=== PATIENT | male | born 1940 | race Caucasian/White ===

== ENCOUNTER 2016-10-21 14:32 | Inpatient (IN) | payer OTHER ==
--- NOTE | ~2016-10-21 | CN ---
Consultation Report [facility] [address] [place]. [address] NAME: BRIAN KUHN : 40 STATUS : ADM IN PAT#: [id number] AGE: 75 ADM/REG DATE : 10/21/16 MR#: [id number] REPORT SERV DATE: 10/22/16 DICTATED BY: COLTON MAYORGA III DATE: 10/22/16 REPORT STATUS : Draft TRANSCRIBED BY: JEAN PAUL DATE: 10/22/16 CONSULTATION DATE OF CONSULTATION: 10/21/2016 REASON FOR CONSULTATION: New lung cancer. HISTORY OF PRESENT ILLNESS: Mr. Kuhn is a 75-year-old man, with a history of atrial fibrillation and coronary artery disease, with a pacer placement, who developed a cough roughly two months ago. This was thought secondary to his lisinopril and managed conservatively. More recently, he developed a shoulder discomfort in his right chest wall after performing some yard work. This progressively worsened and he sought medical workup with a chest x-ray, which revealed a right apical lung mass with suspected rib invasion. He has been mildly confused recently, but for the most part he remains very active. He has not noted any recent hemoptysis. He denies any weight loss, any night sweats, or fevers. He has noted some constipation. PAST MEDICAL HISTORY: 1. Coronary artery disease with myocardial infarction. 2. Hypertension. 3. Atrial fibrillation with pacer. 4. Mild chronic kidney disease. 5. Hypertension. FAMILY HISTORY: Significant for heart disease, diabetes, and hypertension. SOCIAL HISTORY: He is a former smoker, but stopped roughly in 1998. There is no alcohol abuse. HOME MEDICATION: His home medication list was reviewed and per the home med list. REVIEW OF SYSTEMS: A comprehensive review of systems was performed and is negative unless noted in the HPI. PHYSICAL EXAMINATION: VITAL SIGNS: Blood pressure is 142/64, temperature is 98.2, pulse is 75. GENERAL: This is well-developed, well-nourished man, in no acute distress. EYES: Pupils are round and reactive to light. Extraocular muscles are intact. There are anicteric sclerae. NECK: Supple with no masses or thyroid enlargement. No JVD. CARDIOVASCULAR: Irregularly irregular. Rate controlled. There is no peripheral edema. LUNGS: Clear to auscultation bilaterally with normal respiratory effort. ABDOMEN: Soft, nondistended, and nontender. No hepatosplenomegaly. SKIN: Warm and dry with good skin turgor. There is no jaundice. Consultation Report [place] [address] [place]. [address] NAME: BRIAN KUHN : 40 STATUS : ADM IN PAT#: [id number] AGE: 75 ADM/REG DATE : 10/21/16 MR#: [id number] REPORT SERV DATE: 10/22/16 DICTATED BY: COLTON MAYORGA III DATE: 10/22/16 REPORT STATUS : Draft TRANSCRIBED BY: MODL DATE: 10/22/16 PSYCH: He is alert, oriented, and comprehends our conversation with normal judgment and affect. LYMPHATIC: Exam is negative for any cervical, supraclavicular, or axillary lymphadenopathy. LABORATORY AND DIAGNOSTIC DATA: His chest x-ray was reviewed and did show a right apical mass. His admission labs were reviewed. His calcium level was quite elevated at 14.7. ASSESSMENT/PLAN: 1. Right apical mass. We will consult Pulmonary for evaluation. He has imaging planned for today. I did explain to him our suspected diagnosis of lung cancer. I am unable to give him any more specifics at this time until more information is gathered. 2. Hypercalcemia, suspect secondary to malignancy. We will dose pamidronate at 90 mg x1. BMA/MODL Colton Mayorga III, M.D. / [id number] CC: Jameson Humphries MD DAILY,TATIANA
--- NOTE | ~2016-10-21 | EGD ---
EGD REPORT [facility] [address] [phone] NAME: PHILLIP KUHN : 40 STATUS : ADM IN PAT#: [id number] AGE: 75 ADM/REG DATE : 10/21/16 MR#: [id number] REPORT SERV DATE: 10/23/16 DICTATED BY: GHISLAINE OJEDA DATE: 10/23/16 REPORT STATUS : Draft TRANSCRIBED BY: [facility] DATE: 10/23/16 Pulmonology Patient Name: Phillip Kuhn Procedure Date: 10/23/2016 1:39 PM Date of : 1940 Attending MD: MELANIE OJEDA MD Procedure Date No Time: 10/23/2016 Procedure: EBUS/HIWOT BRONCH Indications: RUL lung mass Providers: MELANIE OJEDA MD Referring MD: Colton Parikh III, MD Medicines: Lidocaine 2% 20 mL Complications: No immediate complications Procedure: Pre-Anesthesia Assessment: - A History and Physical has been performed. Patient meds and allergies have been reviewed. The risks and benefits of the procedure and the sedation options and risks were discussed with the patient. All questions were answered and informed consent was obtained. Patient identification and proposed procedure were verified prior to the procedure by the physician and the nurse in the pre-procedure area in the procedure room. Mental Status Examination: alert and oriented. Respiratory Examination: clear to auscultation. CV Examination: normal and RRR, no murmurs, no S3 or S4. ASA Grade Assessment: III - A patient with severe systemic disease. After reviewing the risks and benefits, the patient was deemed in satisfactory condition to undergo the procedure. The anesthesia plan was to use general anesthesia. Immediately prior to administration of medications, the patient was re-assessed for adequacy to receive sedatives. The heart rate, respiratory rate, oxygen saturations, blood pressure, adequacy of pulmonary ventilation, and response to care were monitored throughout the procedure. The physical status of the patient was re-assessed after the procedure. After obtaining informed consent, the Bronchoscope was introduced through the mouth, via the endotracheal tube (the patient was intubated for the procedure) and advanced to the tracheobronchial tree. the BF [id number] was introduced through the mouth, via the endotracheal tube (the patient was intubated for the procedure) and advanced to the tracheobronchial tree. The procedure was accomplished without difficulty. The patient tolerated the procedure well. EGD REPORT [address] [address] NAME: PHILLIP KUHN : 40 STATUS : ADM IN [facility]#: [id number] AGE: 75 ADM/REG DATE : 10/21/16 MR#: [id number] REPORT SERV DATE: 10/23/16 DICTATED BY: GHISLAINE OJEDA DATE: 10/23/16 REPORT STATUS : Draft TRANSCRIBED BY: [employer] [facility] DATE: 10/23/16 Findings: The endotracheal tube is in good position. The visualized portion of the trachea is of normal caliber. The josue is sharp. The tracheobronchial tree was examined to at least the first subsegmental level. Bronchial mucosa and anatomy are normal; there are no endobronchial lesions, and no secretions. EBUS TBNA of lymph node level 11L x 10 passes for cytology EBUS TBNA of lymph node level 4L x 8 passes for cytology EBUS TBNA of lymph node level 7 x 8 passes for cytology EBUS TBNA of lymph node level 4R x 8 passes for cytology Using SuperDimension Edge catheter 180, peripheral probe EBUS 17s, and fluoroscopy, I performed the following biopsies: RUL lung mass transbronchial needle aspirates x 18 passes for cytology RUL lung mass transbronchial brush biopsy x 2 pass for cytology RUL lung mass transbronchial forcep biopsies x 15 passes for histopathology Bronchoalveolar lavage was performed in the right upper lobe of the lung and sent for routine cytology. 180 mL of fluid were instilled. 30 mL were returned. The return was blood-tinged and cellular. Impression: Rapid On-Site Evaluation (EUSEBIA): Preliminary cytology is "negative lymph nodes, hemorrhagic biopsies of the RUL lung mass (final results are pending). Recommendation: - Await test results. - Chest X-ray. Attending Participation: I personally performed the entire procedure. MELANIE OJEDA MD 10/23/2016 5:03 PM This report has been signed electronically. Number of Addenda: 0 Note Initiated On: 10/23/2016 1:39 PM [address] [phone]
--- NOTE | ~2016-10-21 | HP ---
History And Physical [place] [address] [facility] [place]. [address] NAME: BRIAN KUHN : 40 STATUS : ADM IN [facility]#: [id number] AGE: 75 ADM/REG DATE : 10/21/16 MR#: [id number] REPORT SERV DATE: 10/21/16 DICTATED BY: LADARIUS GATICA DATE: 10/21/16 REPORT STATUS : Draft TRANSCRIBED BY: JEAN PAUL DATE: 10/21/16 DATE OF ADMISSION: 10/21/2016 CHIEF COMPLAINT: Slight confusion, sent by doctor for elevated calcium. HISTORY OF PRESENT ILLNESS: The patient is a 75-year-old male with past medical history of ID, stent, pacer, atrial fibrillation history followed by Dr. Lee and Dr. Ventura who approximately six weeks ago was tilling his front lawn, noted he had some shoulder discomfort, has been trying supportive therapy including PT, different types of Voltaren gels and supportive Biofreeze without much improvement. Symptoms have been constant, moderate severity, dull causing difficulty with sleeping until taken oxycodone/APAP, he used to take in four doses, and this has helped with the pain and discomfort. Symptoms have not been radiating and he did not really notice any shortness of breath, fever, chills, diarrhea, or constipation. Symptoms are worsened with range of motion. No relieving symptoms. Symptoms still currently present but improved. The patient was reported to be slightly confused and not at his normal level except in clinic but currently is close to his baseline. He has had on and off spells per family. REVIEW OF SYSTEMS: A 10-point review of systems negative except for that in HPI except for: GENERAL: The patient has had no fevers but has had approximately 17 pounds weight loss. EYES: No eye pain or visual changes. ENT: No sore throat. He does have congestion. NEURO: No headache. Mild confusion. No seizures. SKIN: No rashes or bruising. RESPIRATORY: No shortness of breath or cough. CV: No chest pain, but did have mild back chest wall pain, no palpitations. GI: No nausea vomiting. : No dysuria or hematuria. MUSCULOSKELETAL: Does have back, right scapular type pain. ENDO: Mild increased fatigue. Does have polyuria. HEME: No bleeding or bruising. IMMUNOLOGIC: No rhinorrhea. PSYCH: No anxiety, mild confusion at times but okay at this time. PAST MEDICAL HISTORY: Noted for ID, hypertension, atrial fibrillation with pacer, stent, hiatal hernia, mild CKD, hypertension, followed by Dr. Lee, Dr. Ventura, and Dr. Hernandez. PAST SURGICAL HISTORY: He has had two hernias and pacer placement. FAMILY HISTORY: Diabetes, heart disease, and hypertension. SOCIAL HISTORY: Prior smoker but quit in 1998. Spouse at bedside, from [place]. Rare alcohol. No illicits. [employer] , worked in [employer] at [employer]. PHYSICAL EXAMINATION: History And Physical [address] [address] NAME: BRIAN KUHN : 40 STATUS : ADM IN [facility]#: [id number] AGE: 75 ADM/REG DATE : 10/21/16 MR#: [id number] REPORT SERV DATE: 10/21/16 DICTATED BY: LADARIUS GATICA DATE: 10/21/16 REPORT STATUS : Draft TRANSCRIBED BY: JEAN PAUL DATE: 10/21/16 VITAL SIGNS: The patient blood pressure 118/58, temperature 97.8, pulse 82, respirations 16, O2 sats 97%. GENERAL: Mild temporal wasting. No acute distress, thin. EYES: No scleral icterus. EOMI. ENT: Nares patent. Tongue midline. RESPIRATORY: Clear to auscultation. No wheezes. No dullness to percussion in chest wall. Equal chest expansion. CV: Regular rate. No rubs or gallops. GI: Soft, nontender, nondistended. : Deferred. MUSCULOSKELETAL: Moves all extremities x4. SKIN: Warm and dry. LYMPH: No cervical or supraclavicular lymphadenopathy grossly. NEURO: Alert and oriented. Moves all extremities. He was apparently reported mildly confused earlier but currently back to baseline. No tremors. Gait not tested. PSYCH: Appropriate mood and affect. Symmetrical smile. IMAGING: EKG; ventricular paced rhythm with a rate of 72, QTc 477. ALLERGIES: NO KNOWN DRUG ALLERGIES. HOME MEDICATION: Vitamin C, aspirin, Coreg, vitamin D, Voltaren gel, Lasix, Imdur, Restoril, [place], fish oil, Percocet, pravastatin, Coumadin. LABS: H and H 15 and 44, WBC count 10, platelets 195, sodium 135, potassium 4.5, BUN and creatinine 27 and 0.48, glucose 145, bicarb 32, with a chloride of 99, troponin 0.03, calcium 14.3. UA grossly within normal limits. Ionized calcium is 7.93, phosphorous 2.1. PA chest and lateral; new 7.7 x 4 cm right apical lung mass with apparent destruction of second rib, suspicious for carcinoma, interstitial fibrosis and calcified pleural plaques. Moderate hiatal hernia with an air-fluid level. AST ALT 26 and 46, alkaline phosphatase 158. INR is still ending. Urinalysis grossly within normal limits. ASSESSMENT/PLAN: 1. Hypercalcemia. 2. Right apical mass with rib involvement. 3. Weakness. 4. Mild confusion. 5. Chronic kidney disease. 6. Myocardial infarction, pacer history. 7. History of hypertension. 8. Hyperglycemia. PLAN: 1. For hypercalcemia, IV fluids, IV pamidronate, positive rib destruction on chest x-ray, confirmed with CT. Ionized calcium, now reported elevated; IV fluids and pamidronate. History And Physical [address] [address] NAME: BRIAN KUHN : 40 STATUS : ADM IN [facility]#: [id number] AGE: 75 ADM/REG DATE : 10/21/16 MR#: [id number] REPORT SERV DATE: 10/21/16 DICTATED BY: LADARIUS GATICA DATE: 10/21/16 REPORT STATUS : Draft TRANSCRIBED BY: MODJorge DATE: 10/21/16 Oncology evaluation. 2. Right apical mass rib invasion, PET scan was performed earlier today. Results are still pending. CT to be ordered for followup chest x-ray, likely right-sided lung source, may require biopsy, currently on warfarin, however, INR unknown. We will need to monitor. We will ask Oncology evaluation. 3. Weakness, treat hypercalcemia. 4. Mild confusion, currently now at baseline but at risk due to hypercalcemia, treat underlying hypercalcemia. 5. CKD, stable. 6. ID, pacer history, monitor on tele. Followed by Dr. Lee and Dr. Ventura. 7. History of hypertension, acceptable. 8. Hyperglycemia, mild elevation. Monitor with sliding scale insulin. DISPOSITION: Pending findings from above. I anticipate greater than two midnight inpatient stay. DDN/MODL Ladarius Gatica MD / [id number] CC: Jameson Humphries MD
--- NOTE | ~2016-10-21 | CN ---
Consultation Report [place] [address] [place]. [address] NAME: PHILLIP KUHN : 40 STATUS : ADM IN PAT#: [id number] AGE: 75 ADM/REG DATE : 10/21/16 MR#: [id number] REPORT SERV DATE: 10/22/16 DICTATED BY: JAS OJEDA DATE: 10/22/16 REPORT STATUS : Draft TRANSCRIBED BY: JEAN PAUL DATE: 10/22/16 DATE OF CONSULTATION: Dear Dr. Macias: Thank you for requesting my opinion regarding evaluation and management of Mr. Phillip Kuhn's right upper lobe lung mass. Mr. Kuhn is an extremely pleasant 75-year-old gentleman with a significant past medical history of prior myocardial infarction, status post stent, atrial fibrillation on Coumadin, who presents to [facility] with a several-day history of shoulder discomfort. He describes it as moderate in intensity, well localized to the chest, dull, interrupting sleep. He has taken oxycodone/APAP with some modest improvement. No significant radiation or exacerbating factors. He denies any significant history of shortness of breath at rest or otherwise. Apparently, the patient is somewhat confused according to Dr. Macias's note and has on and off spells as per his family. REVIEW OF SYSTEMS: A detailed 14-point review of systems was completed. Pertinent positives and negatives are listed above. PAST MEDICAL HISTORY: 1. [place]. 2. Hypertension. 3. Atrial fibrillation with pacemaker, stent. 4. Hiatal hernia. 5. CKD. 6. Hypertension. PAST SURGICAL HISTORY: 1. Two hernia repairs. 2. Pacemaker placement. FAMILY HISTORY: 1. Diabetes. 2. Hypertension. 3. Heart disease. SOCIAL HISTORY: The patient was a prior smoker, but quit in 1998. He rarely drinks alcohol. He has no history of illicit drug abuse. 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 PHYSICAL EXAMINATION: Consultation Report [place] [address] [place]. [address] NAME: PHILLIP KUHN : 40 STATUS : ADM IN PAT#: [id number] AGE: 75 ADM/REG DATE : 10/21/16 MR#: [id number] REPORT SERV DATE: 10/22/16 DICTATED BY: JAS OJEDA DATE: 10/22/16 REPORT STATUS : Draft TRANSCRIBED BY: MODJorge DATE: 10/22/16 VITAL SIGNS: Afebrile, T-current of 97.5, pulse of 77, respiratory rate of 14, room air 93%, and blood pressure 135/65. GENERAL: No acute distress. Able to communicate in full paragraphs at a time. HEENT: Normocephalic and atraumatic. Pupils are equal, round, and reactive to light and accommodation. Posterior oropharynx is clear. NECK: No JVD. No LAD. Trachea midline. CARDIOVASCULAR: Regular rate and rhythm. S1 and S2 present. LUNGS: Clear to auscultation bilaterally. ABDOMEN: Nontender, nondistended. Soft. Positive bowel sounds. EXTREMITIES: No clubbing, cyanosis, or edema. SKIN: No new rashes, lesions, or ulcers. PSYCHIATRIC: Alert and oriented x3. Appropriate mood and affect. Appropriate insight and judgment. LABORATORY DATA: White count of 10, hemoglobin of 13, and platelet count of 188. INR of 4.1, PTT of 72, creatinine of 1.43. Chest CT is pending. Chest x-ray performed on 10/21/2016, was personally reviewed by me, 7 x 4 cm right apical lung mass with apparent destruction of the second rib, highly suspicious for carcinoma. Interstitial fibrosis and calcified pleural plaques. Moderate hiatal hernia with air-fluid level. ASSESSMENT AND PLAN: Mr. Phillip Kuhn is an extremely pleasant 75-year-old gentleman, who presents to [facility] with right shoulder pain. Chest x-ray on 10/21/2016 demonstrated a 7 x 4 cm right apical lung mass with apparent destruction of the second rib. A PET-CT scan as per the patient and Dr. Macias's note had been reportedly done here at [facility]; however, there is no record of PET-CT scan in the PACS system or Cymax. CT scan of the chest is currently pending. The clinical and radiographic presentation is highly suspicious for primary bronchogenic carcinoma, especially in the setting of hypercalcemia. A summary of my recommendations are as follows: 1. Correct coagulopathy and in anticipation of procedure. 2. Defer to Medical Hematology Oncology. 3. Based on the CT scan findings and PET-CT findings, we will coordinate an appropriate diagnostic intervention whether it be a CT-guided needle biopsy versus EBUS and navigation bronchoscopy. 4. Full pulmonary function test to be performed as an outpatient. 5. MRI of the brain with and without contrast. 6. We will follow with you closely. Consultation Report [facility] [address] [place] [address] NAME: PHILLIP KUHN : 40 STATUS : ADM IN PAT#: [id number] AGE: 75 ADM/REG DATE : 10/21/16 MR#: [id number] REPORT SERV DATE: 10/22/16 DICTATED BY: JAS OJEDA DATE: 10/22/16 REPORT STATUS : Draft TRANSCRIBED BY: JEAN PAUL DATE: 10/22/16 Thank you for allowing me to participate in Mr. Khun's care. ALLYSON/JEAN PAUL Jas Ojeda M.D. / [id number] CC: MD TATIANA Carter DAILY
--- NOTE | ~2016-10-21 | DS ---
Discharge Summary [facility] [address] [place]. [address] NAME: BRIAN KUHN : 40 STATUS : DIS IN PAT#: [id number] AGE: 75 ADM/REG DATE : 10/21/16 MR#: [id number] REPORT SERV DATE: 10/26/16 DICTATED BY: JUDY ESPINOSA II DATE: 10/25/16 REPORT STATUS : Draft TRANSCRIBED BY: MODL DATE: 10/25/16 ADMISSION DATE: 10/21/2016 DISCHARGE DATE: 10/25/2016 DISCHARGE DIAGNOSES: 1. 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 2. Hypercalcemia of malignancy. 3. Acute metabolic encephalopathy. 4. Fever with questionable pneumonia. 5. Atrial fibrillation, on Coumadin. 6. Chronic kidney disease, stage III. 7. History of myocardial infarction and pacemaker. 8. History of hypertension. CONSULTS: Dr. Ramsey with Pulmonary and Dr. Parikh with [facility]. BRIEF HISTORY OF PRESENT ILLNESS: The patient is a 75-year-old male with the above history, who presented to [facility] due to confusion and found to be hypercalcemic with a large right upper lobe mass. For detailed history and physical examination, please see Dr. Macias's note from 10/21/2016. HOSPITAL COURSE: After admission, the patient was given pamidronate, IV fluids, and his calcium has trended down from almost 15 to 10. His confusion is better and feeling better overall. His creatinine was 1.48 on admission, trended up briefly, and currently 1.4. Regarding his lung mass, CT showed a mass in the right chest apex extending superiorly into the posterior neck base with associated destruction of the posterior right second and third ribs. The upper margin of the mass is not included. Subsequent bronch and biopsy by Dr. Ramsey showed squamous cell carcinoma. At this point, the patient needs an outpatient PET scan and MRI. He will follow with Dr. Parikh as an outpatient to start chemotherapy and plans for possible radiation. Dr. Ramsey has scheduled an appointment to see Dr. Pelletier for consideration of surgical intervention. Otherwise, the patient also was noted to have a fever during his hospitalization of 103. He was started on vancomycin and Zosyn. Currently, he has had 4 days and is being transitioned to Augmentin per Dr. Ramsey to complete a full course for possible pneumonia. At this point, the patient is stable. He also had a Finnegan placed for urinary retention, but we will remove this and make sure he is able to void before being discharged. He is also still using a modest amount of oxygen, but we will do a home O2 eval and set up oxygen if needed. DISCHARGE MEDICATIONS: 1. Augmentin 875 mg p.o. b.i.d. x3 days. 2. Vitamin C 500 mg p.o. daily. 3. Aspirin 81 mg p.o. daily. 4. Voltaren topically p.r.n. 5. Coreg 3.125 mg p.o. b.i.d. 6. Cholecalciferol 1000 units p.o. daily. 7. Imdur 120 mg p.o. daily. Discharge Summary [address] [address] NAME: BRIAN KUHN : 40 STATUS : DIS IN PAT#: [id number] AGE: 75 ADM/REG DATE : 10/21/16 MR#: [id number] REPORT SERV DATE: 10/26/16 DICTATED BY: JUDY ESPINOSA II DATE: 10/25/16 REPORT STATUS : Draft TRANSCRIBED BY: JEAN PAUL DATE: 10/25/16 8. Fish oil 1000 mg p.o. daily. 9. Pravachol 40 mg p.o. at bedtime. 10.Coumadin 5 mg p.o. daily. 11.Lasix 20 mg p.o. daily. 12.Percocet 5/325 mg p.o. at bedtime. DISCHARGE INSTRUCTIONS: The patient will follow with Dr. Parikh next week. He will follow with Dr. Pelletier as an outpatient. ANASTASIIA/JEAN PAUL Judy Espinosa II, MD / [id number] CC: MD TATIANA Ward II
[~2016-10-21 14:32] MED LIST: ASAB PO; ATEN50 PO; C5 PO; COREG3 PO; COUMADIN7.5 MG PO; IMDUR30 PO; IMDUR60 PO; KLOR-CON M2020 MEQ PO; L20 PO; LOPID6 PO; PLAVIX PO; PRAVACHOL40 MG PO; PRIN2.5 PO; PROMEGA PO; VITAMIN D1000 UNI1 PO; VITAMIN D400 UNI1 PO
[2016-10-21 15:10] LABS: ASCORBIC ACID (UR NOT ORDER) NEG (NEG); BILIRUBIN, URINE NEGATIVE (NEG); ER URINALYSIS TAT 0 Hrs 14 Mins; KETONE, URINE NEGATIVE (NEG); LEUKOCYTE ESTERASE(NOT OR NEG (NEG); NITRITE (URINE) NEG (NEG); WBC (NOT ORDERED) (RFLEX) 1 (0-5)
[2016-10-21 15:19] LABS: BASOPHILS 0.1 %; BASOPHILS ABSOLUTE 0.01 10/3/uL (0.0-0.16); EOSINOPHILS 0.4 %; EOSINOPHILS ABSOLUTE 0.04 10/3/uL (0.0-0.53); ER CBC TAT 0 Hrs 12 Mins; HEMATOCRIT 44.7 % (40.0-51.0); HEMOGLOBIN 15.2 g/dL (13.6-17.8); IMMATURE GRANULOCYTES 0.3 %; IMMATURE GRANULOCYTES ABSOLUTE 0.03 10/3/uL (0.0-0.11); LYMPHOCYTES ABSOLUTE 0.81 10/3/uL (0.67-4.30); MEAN PLATELET VOLUME 11.6 fL (9.2-13.0); MONOCYTES 7.2 %; MONOCYTES ABSOLUTE 0.73 10/3/uL (0.21-1.20); NEUTROPHILS ABSOLUTE 8.52 10/3/uL (2.02-8.40); PLATELET COUNT 195 10/3/uL (150-400); RBC DISTRIBUTION WIDTH 15.7 % (12.0-16.0); RED CELL COUNT 5.11 10/6/uL (4.7-6.1); WHITE BLOOD CELLS 10.1 10/3/uL (4.5-10.5)
[2016-10-21 15:20] LABS: MANUAL DIFF NO %; MEAN CORPUSCULAR HEMOGLOB 29.7 pg (26.0-34.0); MEAN CORPUSCULAR VOLUME 87.5 fL (80-100)
[2016-10-21 15:33] LABS: A/G RATIO 0.7 (0.7-1.9); ALBUMIN 3.2 G/DL (3.5-5.0); ALKALINE PHOSPHATASE 158 U/L (45-117); BUN (BLOOD UREA NITROGEN) 27 MG/DL (6-23); CHLORIDE, SERUM 99 MMOL/L (96-112); CREATININE 1.48 MG/DL (0.70-1.30); GFR AFRICAN AMERICAN 53 ML/MIN (>=60); GFR NON AFRICAN AMERICAN 46 ML/MIN (>=60); GLOBULIN 4.9 G/DL (2.5-4.1); POTASSIUM, SERUM 4.5 MMOL/L (3.5-5.3); SGOT(AST) 26 U/L (5-40); SGPT(ALT) 46 U/L (5-65); SODIUM, SERUM 135 MMOL/L (135-148); TOTAL BILIRUBIN 0.9 MG/DL (0-1.2); TOTAL PROTEIN 8.1 G/DL (6.0-8.5); TROPONIN I 0.03 NG/ML (<0.05)
[2016-10-21 15:35] LABS: CALCIUM, SERUM 14.3 MG/DL (8.5-10.4); CO2 (CARBON DIOXIDE) 32 MMOL/L (24-34); GLUCOSE, SERUM 145 MG/DL (60-99)
[2016-10-21] MEDS ORDERED: C5 PO (18:10)
[2016-10-21] MEDS ORDERED: ZESTRIL5 MG PO (18:11)
[2016-10-21] MEDS ORDERED: IMDUR120 PO (18:11)
[2016-10-21] MEDS ORDERED: COREG3 PO (18:11)
[2016-10-21] MEDS ORDERED: L20 PO (18:12)
[2016-10-21] MEDS ORDERED: PCET PO (18:12)
[2016-10-21] MEDS ORDERED: ASAB PO (18:12)
[2016-10-21] MEDS ORDERED: VITC500 PO (18:13)
[2016-10-21] MEDS ORDERED: VITAMIN D1000 UNI1 PO (18:13)
[2016-10-21] MEDS ORDERED: PRAVACHOL40 MG PO (18:13)
[2016-10-21] MEDS ORDERED: FISH-EPA1000 MG PO (18:13)
[2016-10-21] MEDS ORDERED: VOLTAREN1 % TOP (18:14)
[2016-10-21 19:24] LABS: INTACT PTH (ICMA) < 6.3 PG/ML (10.0-65.0)
[2016-10-21 23:17] LABS: INTERNATIONAL NORMAL RATI 4.7 UNITS (-)
[2016-10-21 23:21] LABS: PROTIME (NOT ORD) 43.5 SEC (12.0-14.5)
[2016-10-22 05:35] LABS: INTERNATIONAL NORMAL RATI 4.1 UNITS (-); PROTIME (NOT ORD) 39.6 SEC (12.0-14.5)
[2016-10-22 05:40] LABS: A/G RATIO 0.6 (0.7-1.9); ALBUMIN 2.8 G/DL (3.5-5.0); BUN (BLOOD UREA NITROGEN) 25 MG/DL (6-23); CHLORIDE, SERUM 99 MMOL/L (96-112); CO2 (CARBON DIOXIDE) 30 MMOL/L (24-34); CREATININE 1.43 MG/DL (0.70-1.30); GFR AFRICAN AMERICAN 55 ML/MIN (>=60); GFR NON AFRICAN AMERICAN 48 ML/MIN (>=60); GLOBULIN 4.5 G/DL (2.5-4.1); POTASSIUM, SERUM 4.5 MMOL/L (3.5-5.3); SGOT(AST) 20 U/L (5-40); SGPT(ALT) 35 U/L (5-65); SODIUM, SERUM 137 MMOL/L (135-148); TOTAL BILIRUBIN 1.3 MG/DL (0-1.2); TOTAL PROTEIN 7.3 G/DL (6.0-8.5)
[2016-10-22 05:41] LABS: ALKALINE PHOSPHATASE 145 U/L (45-117); CALCIUM, SERUM 14.7 MG/DL (8.5-10.4); GLUCOSE, SERUM 110 MG/DL (60-99)
[2016-10-22 06:06] LABS: BASOPHILS 0.2 %; BASOPHILS ABSOLUTE 0.02 10/3/uL (0.0-0.16); EOSINOPHILS 0.4 %; EOSINOPHILS ABSOLUTE 0.04 10/3/uL (0.0-0.53); HEMOGLOBIN 13.7 g/dL (13.6-17.8); IMMATURE GRANULOCYTES 0.3 %; IMMATURE GRANULOCYTES ABSOLUTE 0.03 10/3/uL (0.0-0.11); LYMPHOCYTES 11.8 %; LYMPHOCYTES ABSOLUTE 1.18 10/3/uL (0.67-4.30); MEAN CORPUS HGB CONC 34.3 g/dL (32.0-36.0); MEAN CORPUSCULAR HEMOGLOB 29.8 pg (26.0-34.0); MEAN CORPUSCULAR VOLUME 86.7 fL (80-100); MEAN PLATELET VOLUME 11.6 fL (9.2-13.0); MONOCYTES 10.7 %; MONOCYTES ABSOLUTE 1.07 10/3/uL (0.21-1.20); NEUTROPHILS 76.6 %; PLATELET COUNT 188 10/3/uL (150-400); RBC DISTRIBUTION WIDTH 15.9 % (12.0-16.0)
[2016-10-22 06:07] LABS: HEMATOCRIT 39.9 % (40.0-51.0); MANUAL DIFF NO %
[2016-10-22 17:44] LABS: PARTIAL THROMBO TIME 45.5 SEC (22.5-37.2)
[2016-10-22 17:45] LABS: INTERNATIONAL NORMAL RATI 3.2 UNITS (-)
[2016-10-22 17:47] LABS: PROTIME (NOT ORD) 32.3 SEC (12.0-14.5)
[2016-10-22 19:35] LABS: BASOPHILS 0.2 %; BASOPHILS ABSOLUTE 0.02 10/3/uL (0.0-0.16); EOSINOPHILS 0.4 %; EOSINOPHILS ABSOLUTE 0.05 10/3/uL (0.0-0.53); HEMATOCRIT 41.9 % (40.0-51.0); HEMOGLOBIN 14.2 g/dL (13.6-17.8); IMMATURE GRANULOCYTES 0.3 %; IMMATURE GRANULOCYTES ABSOLUTE 0.04 10/3/uL (0.0-0.11); LYMPHOCYTES 2.5 %; LYMPHOCYTES ABSOLUTE 0.33 10/3/uL (0.67-4.30); MEAN CORPUS HGB CONC 33.9 g/dL (32.0-36.0); MEAN CORPUSCULAR HEMOGLOB 29.2 pg (26.0-34.0); MEAN CORPUSCULAR VOLUME 86.2 fL (80-100); MEAN PLATELET VOLUME 11.4 fL (9.2-13.0); MONOCYTES 7.5 %; MONOCYTES ABSOLUTE 0.97 10/3/uL (0.21-1.20); NEUTROPHILS 89.1 %; NEUTROPHILS ABSOLUTE 11.57 10/3/uL (2.02-8.40); PLATELET COUNT 179 10/3/uL (150-400); RBC DISTRIBUTION WIDTH 15.7 % (12.0-16.0); RED CELL COUNT 4.86 10/6/uL (4.7-6.1)
[2016-10-22 19:36] LABS: MANUAL DIFF NO %
[2016-10-23 06:21] LABS: BASOPHILS 0.2 %; BASOPHILS ABSOLUTE 0.02 10/3/uL (0.0-0.16); EOSINOPHILS 0.4 %; EOSINOPHILS ABSOLUTE 0.05 10/3/uL (0.0-0.53); HEMATOCRIT 40.6 % (40.0-51.0); HEMOGLOBIN 13.6 g/dL (13.6-17.8); IMMATURE GRANULOCYTES 0.3 %; IMMATURE GRANULOCYTES ABSOLUTE 0.03 10/3/uL (0.0-0.11); LYMPHOCYTES 4.4 %; LYMPHOCYTES ABSOLUTE 0.49 10/3/uL (0.67-4.30); MEAN CORPUS HGB CONC 33.5 g/dL (32.0-36.0); MEAN CORPUSCULAR HEMOGLOB 29.2 pg (26.0-34.0); MEAN CORPUSCULAR VOLUME 87.3 fL (80-100); MEAN PLATELET VOLUME 11.4 fL (9.2-13.0); MONOCYTES 7.4 %; MONOCYTES ABSOLUTE 0.83 10/3/uL (0.21-1.20); NEUTROPHILS 87.3 %; PLATELET COUNT 147 10/3/uL (150-400); RED CELL COUNT 4.65 10/6/uL (4.7-6.1); WHITE BLOOD CELLS 11.2 10/3/uL (4.5-10.5)
[2016-10-23 06:22] LABS: MANUAL DIFF NO %
[2016-10-23 06:23] LABS: INTERNATIONAL NORMAL RATI 1.6 UNITS (-); PROTIME (NOT ORD) 19.1 SEC (12.0-14.5)
[2016-10-23 06:28] LABS: ALBUMIN 2.6 G/DL (3.5-5.0); CHLORIDE, SERUM 104 MMOL/L (96-112); CO2 (CARBON DIOXIDE) 26 MMOL/L (24-34); CREATININE 1.62 MG/DL (0.70-1.30); GFR AFRICAN AMERICAN 47 ML/MIN (>=60); GFR NON AFRICAN AMERICAN 41 ML/MIN (>=60); PHOSPHORUS, SERUM 2.2 MG/DL (2.5-4.5); POTASSIUM, SERUM 4.3 MMOL/L (3.5-5.3); SODIUM, SERUM 137 MMOL/L (135-148)
[2016-10-23 06:29] LABS: BUN (BLOOD UREA NITROGEN) 32 MG/DL (6-23); CALCIUM, SERUM 12.9 MG/DL (8.5-10.4); GLUCOSE, SERUM 78 MG/DL (60-99)
[2016-10-24 06:34] LABS: BASOPHILS 0 %; EOSINOPHILS 0 %; HEMATOCRIT 40.4 % (40.0-51.0); HEMOGLOBIN 14.1 g/dL (13.6-17.8); IMMATURE GRANULOCYTES 0.4 %; IMMATURE GRANULOCYTES ABSOLUTE 0.06 10/3/uL (0.0-0.11); LYMPHOCYTES 2.7 %; LYMPHOCYTES ABSOLUTE 0.38 10/3/uL (0.67-4.30); MEAN CORPUS HGB CONC 34.9 g/dL (32.0-36.0); MEAN CORPUSCULAR HEMOGLOB 29.5 pg (26.0-34.0); MEAN PLATELET VOLUME 11.4 fL (9.2-13.0); MONOCYTES 5.9 %; MONOCYTES ABSOLUTE 0.82 10/3/uL (0.21-1.20); NEUTROPHILS ABSOLUTE 12.66 10/3/uL (2.02-8.40); PLATELET COUNT 151 10/3/uL (150-400); RBC DISTRIBUTION WIDTH 16.2 % (12.0-16.0); RED CELL COUNT 4.78 10/6/uL (4.7-6.1); WHITE BLOOD CELLS 13.9 10/3/uL (4.5-10.5)
[2016-10-24 06:42] LABS: MANUAL DIFF NO %; MEAN CORPUSCULAR VOLUME 84.5 fL (80-100)
[2016-10-24 06:46] LABS: BUN (BLOOD UREA NITROGEN) 35 MG/DL (6-23); CALCIUM, SERUM 12.1 MG/DL (8.5-10.4); CHLORIDE, SERUM 103 MMOL/L (96-112); CO2 (CARBON DIOXIDE) 22 MMOL/L (24-34); CREATININE 1.63 MG/DL (0.70-1.30); GFR AFRICAN AMERICAN 47 ML/MIN (>=60); GFR NON AFRICAN AMERICAN 41 ML/MIN (>=60); POTASSIUM, SERUM 4.2 MMOL/L (3.5-5.3); SODIUM, SERUM 136 MMOL/L (135-148)
[2016-10-24 06:48] LABS: GLUCOSE, SERUM 160 MG/DL (60-99)
[2016-10-25 07:09] LABS: BASOPHILS 0.1 %; BASOPHILS ABSOLUTE 0.01 10/3/uL (0.0-0.16); EOSINOPHILS 0.8 %; HEMOGLOBIN 12.1 g/dL (13.6-17.8); IMMATURE GRANULOCYTES 0.3 %; IMMATURE GRANULOCYTES ABSOLUTE 0.04 10/3/uL (0.0-0.11); LYMPHOCYTES 7.1 %; LYMPHOCYTES ABSOLUTE 0.85 10/3/uL (0.67-4.30); MEAN CORPUSCULAR HEMOGLOB 29.1 pg (26.0-34.0); MEAN CORPUSCULAR VOLUME 85.6 fL (80-100); MEAN PLATELET VOLUME 11.9 fL (9.2-13.0); MONOCYTES 8.1 %; MONOCYTES ABSOLUTE 0.97 10/3/uL (0.21-1.20); NEUTROPHILS 83.6 %; NEUTROPHILS ABSOLUTE 10.02 10/3/uL (2.02-8.40); PLATELET COUNT 142 10/3/uL (150-400); RBC DISTRIBUTION WIDTH 16.3 % (12.0-16.0); RED CELL COUNT 4.16 10/6/uL (4.7-6.1)
[2016-10-25 07:12] LABS: HEMATOCRIT 35.6 % (40.0-51.0); MANUAL DIFF NO %
[2016-10-25 07:18] LABS: BUN (BLOOD UREA NITROGEN) 41 MG/DL (6-23); CALCIUM, SERUM 10.1 MG/DL (8.5-10.4); CHLORIDE, SERUM 105 MMOL/L (96-112); CO2 (CARBON DIOXIDE) 31 MMOL/L (24-34); GFR AFRICAN AMERICAN 57 ML/MIN (>=60); GFR NON AFRICAN AMERICAN 49 ML/MIN (>=60); GLUCOSE, SERUM 108 MG/DL (60-99); SODIUM, SERUM 141 MMOL/L (135-148)
[2016-10-25 07:25] LABS: INTERNATIONAL NORMAL RATI 1.5 UNITS (-); PROTIME (NOT ORD) 17.9 SEC (12.0-14.5)
[2016-10-25] MEDS ORDERED: AUG875 PO (14:49)
[2016-10-25] MEDS ORDERED: SPIRIVA (14:50)
[2016-10-25] MEDS ORDERED: PROAIR HFA INH (14:53)
== END 2016-10-25 16:41 | disposition home or self-care (01) | DRG 166 ==
LOC: ER 14:32 → 7NO 18:39
PROVIDERS: Emergency Medicine; Hospitalist; Internal Medicine; Nurse Practitioner Family; Student in an Organized Health Care Education/Training Program
PROC: 0B9C8ZX Drainage of Right Upper Lung Lobe, Via Natural or Artificial Opening Endoscopic, Diagnostic (ICD-10-PCS; principal; 2016-10-23 15:05)
PROC: 07974ZX Drainage of Thorax Lymphatic, Percutaneous Endoscopic Approach, Diagnostic (ICD-10-PCS; 2016-10-23 15:05)
DX: C34.11 Malignant neoplasm of upper lobe, right bronchus or lung (principal); G93.41 Metabolic encephalopathy; J18.9 Pneumonia, unspecified organism; E44.0 Moderate protein-calorie malnutrition; E83.52 Hypercalcemia; C79.51 Secondary malignant neoplasm of bone; I48.91 Unspecified atrial fibrillation; C77.1 Secondary and unspecified malignant neoplasm of intrathoracic lymph nodes; I12.9 Hypertensive chronic kidney disease with stage 1 through stage 4 chronic kidney disease, or unspecified chronic kidney disease; R73.9 Hyperglycemia, unspecified; I25.10 Atherosclerotic heart disease of native coronary artery without angina pectoris; N18.3 Chronic kidney disease, stage 3 (moderate); K44.9 Diaphragmatic hernia without obstruction or gangrene; R00.1 Bradycardia, unspecified; Z79.01 Long term (current) use of anticoagulants; I25.2 Old myocardial infarction; Z95.5 Presence of coronary angioplasty implant and graft; Z95.0 Presence of cardiac pacemaker; Z83.3 Family history of diabetes mellitus; Z82.49 Family history of ischemic heart disease and other diseases of the circulatory system; Z87.891 Personal history of nicotine dependence; Z98.890 Other specified postprocedural states
CPT/HCPCS: 70450; 71010; 71020; 71250; 80048; 80053; 80069; 81001; 82330; 82962; 83605; 83735; 83970; 84100; 84145; 84443; 84484; 85025; 85610; 85730; 87040; 88112; 88172; 88173; 88177; 88305; 88333; 88334; 93005; 99285; A9270-GY; C1725; C1769; J2370; J2405; J2430; J2543; J2710; J3010; J3370; J3430; J3475